=== PATIENT | female | born 1980 | race Caucasian/White ===

== ENCOUNTER → 2017-12-03 15:44 | Outpatient (CLI) | payer SELFPAY ==
[2017-12-03 17:57] LABS: Absolute Lymphocyte Count 1.45 X10^3/ul (0.83-4.51); Absolute Neutrophil Count 5.7 X10^3/uL (2.0-7.7); Basophil# 0.04 X10^3/uL; Basophil% 0.5 % (0-1); Eosinophil# 0.23 X10^3/uL; Eosinophils% 2.8 % (0-5); Hematocrit 35.9 % (37-47); Hemoglobin 10.8 g/dl (12.0-15.0); Lymphocyte # 1.45 X10^3/ul (4.0); Lymphocyte % 17.8 % (19-41); Mean Corp Hgb Conc 30.1 g/gl (32-36); Mean Corpuscular Hgb 23.3 pg (27.0-32.0); Mean Corpuscular Volume 77.4 fL (81-99); Monocyte# 0.68 X10^3/uL; Monocyte% 8.4 % (0-10); Neutrophil # 5.73 X10^3/uL (2.7-7.7); Neutrophil % 70.4 % (47-70); Platelet Count 325 K/mm3 (150-450); RBC Distribution Width CV 15.7 % (11.6-14.6); RBC Distribution Width SD 44.2 fl (35.1-43.9); Red Blood Count 4.64 M/mm3 (4.2-5.4); White Blood Count 8.1 K/mm3 (4.4-11.0)
[2017-12-03 18:05] LABS: POSITIVE COUNT NO; POSITIVE DIFFERENTIAL NO; POSITIVE MORPHOLOGY NO
[2017-12-03 19:01] LABS: Anion Gap 8 (5-15); BUN 12 mg/dL (7-18); BUN/Creat Ratio 15.4 RATIO (10-20); Calcium,Total 8.8 mg/dL (8.5-10.1); Chloride 106 mmol/L (98-107); Creatinine, Serum 0.78 mg/dL (0.55-1.02); EST Glomerular Filtration Rate 88 mL/min (>60); Est Glom Filt Rate - Afr Amer 106 mL/min (>60); Glucose 148 mg/dL (74-106); Magnesium 2.1 mg/dL (1.6-2.6); Potassium 3.8 mmol/L (3.5-5.1); Sodium Level 141 mmol/L (136-145); T4 Free Direct 0.97 ng/dL (0.76-1.46); Thyroid Stim Hormone (TSH) 1.15 uIU/mL (0.358-3.74)
== END ==
PROVIDERS: Family Provider Family Medicine; PCP Family Medicine; Visit Provider Family Medicine
DX: R06.00 Dyspnea, unspecified (principal); R00.2 Palpitations
CPT/HCPCS: 36415; 80048; 83735; 84439; 84443; 85025

== ENCOUNTER → 2017-12-08 19:19 | Outpatient (CLI) | payer OTHER, SELFPAY ==
[2017-12-14 14:36] LABS: HPV APTIMA, High Risk Negative (Negative)
== END ==
PROVIDERS: Visit Provider Nurse Practitioner Women's Health
DX: Z12.4 Encounter for screening for malignant neoplasm of cervix (principal)
CPT/HCPCS: 88175; G0145

== ENCOUNTER → 2017-12-16 08:05 | Outpatient (CLI) | payer OTHER, SELFPAY ==
--- NOTE | 2017-12-16 08:09 | US_ITS ---
STUDY: ULTRASOUND OF THE FEMALE PELVIS - COMPLETE REASON FOR EXAM: Female, 37 years old. DUB TECHNIQUE: Transabdominal and Transvaginal TECHNICAL QUALITY: Adequate. COMPARISON: None. FINDINGS: The uterus is anteverted and is in a midline position. The uterus measures 10.3 x 6 x 5.8 cm. Normal uterine cervix. The endometrium measures 5 mm in thickness, and is hyperechoic. There is no demonstrated endometrial mass. Uterine fibroid visualized measuring 15 x 11 x 14 mm. I.U.D. - The patient does not have an I.U.D. The right ovary is visualized. The right ovary measures 2.9 x 2.8 x 1.3 cm. There is no right ovarian cyst or ovarian mass. There is no visualized right adnexal mass or complex lesion. There is normal arterial and normal venous vascularity. The left ovary is visualized. The left ovary measures 2.5 x 3.9 x 1.8 cm. There is no left ovarian cyst or ovarian mass. There is no visualized left adnexal mass or complex lesion. There is normal arterial and normal venous vascularity. There is no fluid in the cul-de-sac. The pre void volume of the bladder was 282 ml. Polycystic ovary disease: No. US/Pelvic (Non ) IMPRESSION: Fibroid uterus. Electronically Signed: Kevin Hampton MD at 16:56 EDT , Service support ,
--- NOTE | 2017-12-16 08:09 | US_ITS ---
STUDY: ULTRASOUND OF THE FEMALE PELVIS - COMPLETE REASON FOR EXAM: Female, 37 years old. DUB TECHNIQUE: Transabdominal and Transvaginal TECHNICAL QUALITY: Adequate. COMPARISON: None. FINDINGS: The uterus is anteverted and is in a midline position. The uterus measures 10.3 x 6 x 5.8 cm. Normal uterine cervix. The endometrium measures 5 mm in thickness, and is hyperechoic. There is no demonstrated endometrial mass. Uterine fibroid visualized measuring 15 x 11 x 14 mm. I.U.D. - The patient does not have an I.U.D. The right ovary is visualized. The right ovary measures 2.9 x 2.8 x 1.3 cm. There is no right ovarian cyst or ovarian mass. There is no visualized right adnexal mass or complex lesion. There is normal arterial and normal venous vascularity. The left ovary is visualized. The left ovary measures 2.5 x 3.9 x 1.8 cm. There is no left ovarian cyst or ovarian mass. There is no visualized left adnexal mass or complex lesion. There is normal arterial and normal venous vascularity. There is no fluid in the cul-de-sac. The pre void volume of the bladder was 282 ml. Polycystic ovary disease: No. US/Transvaginal Non- IMPRESSION: Fibroid uterus. Electronically Signed: Kevin Hampton MD at 16:56 EDT , Service support ,
== END ==
PROVIDERS: Family Provider Family Medicine; PCP Family Medicine; Visit Provider Nurse Practitioner Women's Health
DX: N92.0 Excessive and frequent menstruation with regular cycle (principal)
CPT/HCPCS: 76830; 76856; 93976

== ENCOUNTER → 2019-04-05 | Outpatient (CLI) | payer BC, SELFPAY ==
[2017-12-08 13:57] VITALS: BMI 44.2
[2019-04-05 12:50] LABS: Absolute Lymphocyte Count 1.05 X10^3/uL (0.83-4.51); Absolute Neutrophil Count 4.8 X10^3/uL (2.0-7.7); Basophil# 0.07 X10^3/uL; Eosinophil# 0.23 X10^3/uL; Eosinophils% 3.3 % (0-5); Hematocrit 33.5 % (37-47); Hemoglobin 9.7 g/dL (12.0-15.0); Lymphocyte # 1.05 X10^3/ul (4.0); Lymphocyte % 15.2 % (19-41); Mean Corpuscular Hgb 21.8 pg (27.0-32.0); Mean Corpuscular Volume 75.5 fL (81-99); Mean Platelet Vol. 10.3 fl (6.2-12.0); Monocyte# 0.66 X10^3/uL; Monocyte% 9.6 % (0-10); NRBC Flagged by Analyzer 0 % (0-5); Neutrophil # 4.84 X10^3/uL (2.7-7.7); Neutrophil % 70.3 % (47-70); Platelet Count 315 K/mm3 (150-450); RBC Distribution Width CV 15.7 % (11.6-14.6); RBC Distribution Width SD 42.6 fl (35.1-43.9); Red Blood Count 4.44 M/mm3 (4.2-5.4); White Blood Count 6.9 K/mm3 (4.4-11.0)
[2019-04-05 12:57] LABS: Hemoglobin A1c 5.3 % (4.2-6.3)
[2019-04-05 13:24] LABS: Anion Gap 10 (5-15); BUN 9 mg/dL (7-18); BUN/Creat Ratio 12.5 RATIO (10-20); Calcium,Total 8.7 mg/dL (8.5-10.1); Chloride 104 mmol/L (98-107); Creatinine, Serum 0.72 mg/dL (0.55-1.02); EST Glomerular Filtration Rate 96 mL/min (>60); Est Glom Filt Rate - Afr Amer 116 mL/min (>60); Glucose 103 mg/dL (74-106); Iron 15 ug/dL (50-170); Potassium 3.9 mmol/L (3.5-5.1); Sodium Level 138 mmol/L (136-145); Thyroid Stim Hormone (TSH) 1.25 uIU/mL (0.358-3.74)
== END | disposition home or self-care (01) ==
LOC: BFHLAB 09:35
PROVIDERS: Family Provider Family Medicine; PCP Family Medicine; Visit Provider Family Medicine
DX: D64.9 Anemia, unspecified (principal); F32.9 Major depressive disorder, single episode, unspecified; R73.02 Impaired glucose tolerance (oral)
CPT/HCPCS: 36415; 80048; 83036; 83540; 84443; 85025

== ENCOUNTER → 2020-07-17 12:35 | Outpatient (CLI) | payer BC, SELFPAY ==
--- NOTE | 2020-07-17 13:05 | CT_ITS ---
STUDY: CT BRAIN WITHOUT CONTRAST REASON FOR EXAM: Female, 39 years old. SIGNS OF ENLARGING INTERCRANIAL MASS RADIATION DOSAGE (If Supplied By Facility): CTDIvol = ( 60.81 ) mGy, DLP = ( 2134.16 ) mGycm TECHNIQUE: Transaxial CT imaging of the brain was performed without administration of intravenous contrast material. Individualized dose optimization techniques were used for this CT. COMPARISON: No relevant priors. FINDINGS: Normal soft tissue structures. Normal calvarium. Normal size ventricles and extra-axial spaces for the patient''s age. Normal white matter tracts of the cerebral hemispheres. Normal basal ganglia and thalami. Normal brainstem. Normal cerebellum. There is no intracranial hemorrhage. There are no findings of an acute ischemic infarction. Normal visualized paranasal sinuses. CT/Brain/Head without Contrast IMPRESSION: Normal unenhanced CT scan of the brain. Electronically Signed: Fabio Calvillo MD at 13:37 EST , Service support ,
== END ==
PROVIDERS: PCP Family Medicine; Referring Provider Family Medicine; Visit Provider Family Medicine
DX: R51.0 Headache with orthostatic component, not elsewhere classified (principal); H53.2 Diplopia
CPT/HCPCS: 70450

== ENCOUNTER → 2020-10-23 14:54 | Outpatient (CLI) | payer BC, SELFPAY ==
[2017-12-08 13:57] VITALS: BMI 44.2
[2020-10-23 17:47] LABS: Absolute Lymphocyte Count 1.16 X10^3/uL (0.83-4.51); Absolute Neutrophil Count 4.2 X10^3/uL (2.0-7.7); Basophil# 0.07 X10^3/uL; Basophil% 1.1 % (0-1); Eosinophil# 0.37 X10^3/uL; Eosinophils% 5.7 % (0-5); Hematocrit 33.9 % (37-47); Hemoglobin 9.9 g/dL (12.0-15.0); Lymphocyte # 1.16 X10^3/ul (0.83-4.51); Lymphocyte % 17.8 % (19-41); Mean Corp Hgb Conc 29.2 g/dL (32-36); Mean Corpuscular Hgb 22.5 pg (27.0-32.0); Mean Platelet Vol. 10.5 fl (6.2-12.0); Monocyte# 0.75 X10^3/uL; Monocyte% 11.5 % (0-10); NRBC Flagged by Analyzer 0 % (0-5); Neutrophil # 4.15 X10^3/uL (2.7-7.7); Neutrophil % 63.4 % (47-70); Platelet Count 292 K/mm3 (150-450); RBC Distribution Width CV 15.2 % (11.6-14.6); RBC Distribution Width SD 42.4 fl (35.1-43.9); White Blood Count 6.5 K/mm3 (4.4-11.0)
[2020-10-23 18:10] LABS: ALB/GLOB Ratio 1.1 RATIO (0.9-2.4); AST(SGOT) 44 U/L (15-37); Alanine Aminotransfer ALT/SGPT 72 U/L (13-56); Albumin, Serum 3.6 g/dL (3.2-5.0); Alkaline Phosphatase 111 U/L (45-117); Anion Gap 9 (5-15); BUN 8 mg/dL (7-18); BUN/Creat Ratio 10.9 RATIO (10-20); Calcium,Total 8.7 mg/dL (8.5-10.1); Chloride 109 mmol/L (98-107); Creatinine, Serum 0.73 mg/dL (0.55-1.02); EST Glomerular Filtration Rate 93 mL/min (>60); Est Glom Filt Rate - Afr Amer 112 mL/min (>60); Ferritin 6 ng/mL (8-252); Globulin 3.2 g/dL (2.2-4.2); Glucose 90 mg/dL (74-106); Iron 20 ug/dL (50-170); Magnesium 2.1 mg/dL (1.6-2.6); Potassium 3.8 mmol/L (3.5-5.1); Protein, Total 6.8 g/dL (6.4-8.2); Sodium Level 140 mmol/L (136-145); Thyroid Stim Hormone (TSH) 1.65 uIU/mL (0.358-3.74)
== END ==
PROVIDERS: PCP Family Medicine; Referring Provider Family Medicine; Visit Provider Family Medicine
DX: I95.9 Hypotension, unspecified (principal); D64.9 Anemia, unspecified; G93.2 Benign intracranial hypertension; R00.2 Palpitations
CPT/HCPCS: 36415; 80053; 82728; 83540; 83735; 84443; 85025

== ENCOUNTER → 2021-03-07 12:05 | Outpatient (CLI) | payer BC, SELFPAY ==
--- NOTE | 2021-03-07 12:10 | US_ITS ---
STUDY: ULTRASOUND TRANSVAGINAL CLINICAL: Female, 40 years old. Abnormal uterine bleeding TECHNIQUE: Transabdominal and Transvaginal COMPARISON: None. FINDINGS: Normal uterine size measuring 9.7 x 5.9 x 5.7 cm in maximal craniocaudal dimension. There are no myometrial masses. Endometrial thickness measuring 13 mm. There are no endometrial masses, and there is no fluid in the endometrial cavity. Normal uterine cervix. Nabothian cyst. Normal right ovary, measuring 4 x 2.1 x 2.3 cm. There are multiple follicles with a dominant cyst. Normal left ovary, measuring 3.9 x 2.6 x 2.9 cm. 3.3 x 2.1 x 2.1 cm cyst. There is mild free fluid in the pelvis. Polycystic ovary disease: No. US/Pelvic (Non ) IMPRESSION: 13 mm endometrial thickness without other abnormal endometrial finding. 3.3 cm left ovarian cyst. Electronically Signed: Jesus Alberto Mendoza MD at 3:01 EDT Tel , Service support ,
--- NOTE | 2021-03-07 12:10 | US_ITS ---
STUDY: ULTRASOUND TRANSVAGINAL CLINICAL: Female, 40 years old. Abnormal uterine bleeding TECHNIQUE: Transabdominal and Transvaginal COMPARISON: None. FINDINGS: Normal uterine size measuring 9.7 x 5.9 x 5.7 cm in maximal craniocaudal dimension. There are no myometrial masses. Endometrial thickness measuring 13 mm. There are no endometrial masses, and there is no fluid in the endometrial cavity. Normal uterine cervix. Nabothian cyst. Normal right ovary, measuring 4 x 2.1 x 2.3 cm. There are multiple follicles with a dominant cyst. Normal left ovary, measuring 3.9 x 2.6 x 2.9 cm. 3.3 x 2.1 x 2.1 cm cyst. There is mild free fluid in the pelvis. Polycystic ovary disease: No. US/Transvaginal Non- IMPRESSION: 13 mm endometrial thickness without other abnormal endometrial finding. 3.3 cm left ovarian cyst. Electronically Signed: Jesus Alberto Mendoza MD at 3:01 EDT Tel , Service support ,
--- NOTE | 2021-03-07 12:10 | ECHOD_ITS ---
Reason For Study: SYNCOPE/NEAR SYNCOPE Procedure This was a 2D Doppler, Color Flow transthoracic echocardiogram. The study was technically difficult. Contrast injection was performed. Exam performed in department. Left Ventricle Normal LV size. Left ventricular systolic function is normal. The estimated ejection fraction is 60 %. Normal diastology for age. No regional wall motion abnormalities noted. Right Ventricle Normal RV size. Normal systolic function. Atria Normal left atrium. Normal right atrium. Mitral Valve Normal mitral valve. Tricuspid Valve Normal tricuspid valve. Mild (1+) tricuspid valve insufficiency. Pulmonary artery systolic pressure is 28 mmHg. Aortic Valve Normal aortic valve. Trisinus/trileaflet aortic valve. Pulmonic Valve The pulmonic valve is not well visualized. Great Vessels Normal aortic root. The pulmonary artery is normal size. Normal inferior vena cava. Pericardium/Pleural No pericardial effusion. Medication 22 gauge I.V. with prn adaptor inserted into left arm. Diluted definity 2.5ml given slow IV push to enhance endocardial definition. MMode/2D Measurements & Calculations LVIDd: 5.5 cm IVSd: 0.77 cm Ao root diam: 3.2 cm LVIDs: 3.8 cm LVPWd: 0.74 cm RVDd: 4.2 cm FS: 31.0 % LAV(MOD-bp): 50.2 ml LVAd ap4: 26.3 cm2 SV(MOD-sp4): 40.3 ml LAV(MOD-bp) Indexed: 22.0 ml/m2 LVLd ap4: 7.6 cm LAV(MOD-sp2): 42.8 ml EDV(MOD-sp4): 71.6 ml LAV(MOD-sp4): 50.5 ml EDV(sp4-el): 77.1 ml LVAs ap4: 16.0 cm2 LVLs ap4: 6.5 cm ESV(MOD-sp4): 31.3 ml ESV(sp4-el): 33.4 ml EF(MOD-sp4): 56.2 % EF(sp4-el): 56.6 % SV(sp4-el): 43.7 ml LA A4 area: 19.7 cm2 LA dimension(2D): 4.6 cm RA A4 area: 19.9 cm2 Doppler Measurements & Calculations MV E max sourav: 79.7 cm/sec Lat Peak E' Sourav: 14.6 cm/sec Med Peak E' Sourav: 10.2 cm/sec MV A max sourav: 44.9 cm/sec E/E' lat: 5.5 E/E' med: 7.8 MV E/A: 1.8 Ao V2 max: 141.1 cm/sec LV V1 max: 113.3 cm/sec PA V2 max: 102.9 cm/sec Ao max P.0 mmHg LV V1 max P.1 mmHg TR max sourav: 243.5 cm/sec TR max P.7 mmHg ECHO/Echo Complete W/ Contrast Interpretation Summary Normal LV size. Left ventricular systolic function is normal. The estimated ejection fraction is 60 %. Normal diastology for age. Contrast injection was performed. Ordering Physician: Hussein Moore Referring Physician: CHERI HERRERA Performed By: Karyn Salas, RDCS, RVT
== END ==
PROVIDERS: PCP Family Medicine; Referring Provider Internal Medicine Cardiovascular Disease; Visit Provider Nurse Practitioner Women's Health
DX: N92.0 Excessive and frequent menstruation with regular cycle (principal); I95.9 Hypotension, unspecified; R55 Syncope and collapse
CPT/HCPCS: 76830; 76856; 93306; Q9957; A4216; C8929; J3490

== ENCOUNTER → 2021-03-09 11:46 | Outpatient (CLI) | payer BC, SELFPAY ==
--- NOTE | 2021-03-09 11:46 | BI_ITS ---
MAMMOGRAPHY - BILATERAL SCREENING REASON FOR EXAM: Female, 40 years old. Routine annual screening examination. PERTINENT HISTORY: Grandmother with breast cancer. Aunt with breast cancer. TECHNIQUE: Digital bilateral breast casper (3D mammographic acquisition) in the CC and MLO projections. 2-D mediolateral oblique (MLO) and craniocaudad (CC) views of both breasts were obtained. CAD: Full Field Digital Mammography with Computer Added Detection was performed. COMPARISON: None. Baseline examination. FINDINGS: Breast Composition: There are scattered areas of fibroglandular density. There are no dominant masses or suspicious calcifications. Small bilateral benign-appearing axillary lymph nodes. No other significant abnormalities are identified. BI/SCRN MAMM (CAD)W/CASPER BILAT IMPRESSION: Negative screening mammogram. Yearly followup mammogram recommended. (A) ASSESSMENT CATEGORY: BIRADS Category 2: Benign. A letter regarding these results will be sent to the patient by the facility within 30 days. Approximately 10% of breast cancers are not detected by mammography. A normal mammogram should not delay biopsy of a clinically suspicious abnormality. [id number] Electronically Signed: Fabio Calvillo MD at 12:53 EDT , Service support ,
== END ==
PROVIDERS: PCP Family Medicine; Visit Provider Nurse Practitioner Women's Health
DX: Z12.31 Encounter for screening mammogram for malignant neoplasm of breast (principal)
CPT/HCPCS: 77063; 77067

== ENCOUNTER → 2021-04-11 16:12 | Outpatient (CLI) | payer BC, SELFPAY ==
--- NOTE | 2021-04-11 16:25 | MRI_ITS ---
STUDY: EXAMINATION - MRV BRAIN WITHOUT CONTRAST REASON FOR EXAM: Female, 40 years old. PSEUDOTUMOR CEREBRI TECHNIQUE: 3D [id number] (TOF) imaging was performed in a mayte MRI scanner. COMPARISON: None. FINDINGS: Examination is technically suboptimal due to lack of IV contrast. There are flow artifacts obscuring transitions of the transverse to sigmoid sinuses. Superior sagittal sinus, straight sinus and right transverse sinus are normal. Right sigmoid sinus is normal. Junction of right transverse and sigmoid is suboptimally evaluated. Left transverse sinus is small with poorly visualized junction with the sigmoid. Sigmoid is small and patent. Proximal jugulars are patent with right dominant. MRI/MRV Head Without Contrast IMPRESSION: 1. Technically suboptimal exam with segmental nonvisualization. 2. 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 3. Definitive evaluation is desired consider contrast enhanced exam to avoid artifacts. Electronically Signed: Tracey Joseph MD at 8:43 EST Tel , Service support ,
== END ==
PROVIDERS: PCP Family Medicine; Visit Provider Psychiatry & Neurology Neurology
DX: G93.2 Benign intracranial hypertension (principal)
CPT/HCPCS: 70544

== ENCOUNTER → 2021-04-30 | Outpatient (CLI) | payer BC, SELFPAY ==
--- NOTE | 2021-04-30 | EMB_PTH ---
PATIENT: RAFFY NIXON LOC: [facility] U#:[id number] AGE/SX: 40/F ROOM: RE04/30/[address]: Dr. Catherine Tripp MD : 1980 BED: DIS: 04/30/2021 SPEC #: [id number] RECD: 04/30/21 16:12 STATUS: NIGEL REYazmin #: [id number] RAI: 04/30/21 00:[address]: Catherine Tripp DEPT: SURGICAL PATHOLOGY RECD BY: Charles Lopez ENTERED: 05/01/21 10:22 SP TYPE: ENDOM BX/C CHUCHO DR: Dr. Sabas Rizvi MD Tissues: Endometrium, NOS Procedures: Surgery Specimen Level IV HEADER OPERATION: Endometrial biopsy PRE-OP DIAGNOSIS: Menorrhagia with regular cycle TISSUE SUBMITTED: Endometrium MICROSCOPIC DIAGNOSIS Endometrium, biopsy: Proliferative endometrium with minimal disorder. AM:kristyn 05/02/2021 MICROSCOPIC DESCRIPTION Slides are reviewed. GROSS DESCRIPTION Received is one container labeled with the patient's name and not further designated. The specimen consists of multiple irregular fragments of light hilario soft tissue that in aggregate measure 2.5 x 2.5 x <0.1 cm. The specimen is totally submitted in one cassette. / AM:kristyn 05/01/21 TC:5 CPT: 69609
== END | disposition home or self-care (01) ==
LOC: LABSPEC 16:21
PROVIDERS: PCP Family Medicine; Referring Provider Obstetrics & Gynecology; Visit Provider Obstetrics & Gynecology
DX: N92.0 Excessive and frequent menstruation with regular cycle (principal)
CPT/HCPCS: 88305

== ENCOUNTER 2021-05-22 10:13 | Day surgery (SDC) | payer BC, SELFPAY ==
[2021-05-22] VITALS (10 sets, daily range): BP systolic 106–134; BP diastolic 56–84; PULSE 67–755; RESP 16–18; TEMP 36.3–37; O2SAT 93–100; BMI 43.4
--- NOTE | 2021-05-22 07:30 | HP.PCM_ITS ---
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 Is patient in pain?: No Allergies bee venom protein (honey bee) Allergy (Severe, Verified 04/30/21 09:00) Anaphylaxis Medications cholecalciferol (vitamin D3) 25 mcg (1,000 unit) capsule 25 mcg PO DAILY 02/06/21 [History Confirmed 04/30/21] ferrous gluconate 324 mg (37.5 mg iron) tablet 324 mg PO DAILY 02/06/21 [History Confirmed 04/30/21] mecobalamin (vitamin B12) 1,000 mcg chewable tablet 1,000 mcg PO DAILY 02/06/21 [History Confirmed 04/30/21] acetaminophen 325 mg capsule 650 mg PO ONCE PRN cap 04/05/21 [History Confirmed 04/30/21] acetazolamide 500 mg capsule,extended release 500 mg PO TID #90 cap 04/05/21 [Rx Confirmed 04/30/21] cyclobenzaprine 10 mg tablet 10 mg PO BID PRN tab 04/05/21 [History Confirmed 04/30/21] loratadine 10 mg capsule 10 mg PO DAILY 04/05/21 [History Confirmed 04/30/21] meloxicam 15 mg tablet 15 mg PO DAILY tab 04/05/21 [History Confirmed 04/30/21] sertraline 100 mg tablet 100 mg PO DAILY tab 04/05/21 [History Confirmed 04/30/21] PFSH Medical History (Updated 04/30/21 @ 09:[address] Catherine Tripp MD) Anemia Anxiety and depression Arthritis COVID-19 virus detected (01/03/21) IBS (irritable bowel syndrome) IIH (idiopathic intracranial hypertension) Iron deficiency anemia Morbid obesity Psoriatic arthritis Seasonal allergies Situational depression Tobacco abuse Vision problems Surgical History delivery delivered H/O dilation and curettage History of cholecystectomy Family History Mother Diabetes Hypertension Father Diabetes Hypertension Kidney disease stage 4 Grandmother Diabetes MVP (mitral valve prolapse) Breast cancer Congestive heart disease Kidney disease Grandfather Kidney disease CVA (cerebral vascular accident) Diabetes Cancer lung Social History Smoking Status: Former smoker quit date: 05/19/18 pack-years: 20 Tobacco: How many years used: 20 Electronic Cigarette Use: not used second hand exposure: No alcohol intake: current details: social substance use type: does not use caffeine: Yes what type of physical activity do you participate in: walking frequency: 3-4 times per week seatbelt use: always do you feel safe at home: Yes 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 she tried progestin only pill and it exacerbated her IIH so she stopped it. She has had a normal US 10 cm uterus no abnormal findings. she is considering an ablation she has been iron for anemia. most recent hg was 11. she hasn't had an EMB yet. Pregancy History 5 Elective abortions Hx Para 4 Spontaneous abortions Hx # Term Pregnancies Ectopic pregnancies Hx # Pregnancies Multiple births # of living children Past Pregnancies Del. Date Name GA/Weeks Outcome Route Bth Weight Gen Labor Lgth Anesthesia Del Locatn Provider FOB Unknown 1998 Mattie live - full term [place] Unknown 2001 Miscarriage Unknown 2004 Marisela 40 live - full term [place] Unknown 2004 Daniel 40 live - full term [place] [facility] Unknown 2009 Lisa 40 live - full term [facility] ROS Const Constitutional: Reports fatigue; Denies weight gain or weight loss Cardio Card: Denies chest pain Resp Resp: Denies cough or dyspnea on exertion GI GI: Denies abdominal pain, bloating, change in stool character, constipation or vomiting : Reports as per HPI; Denies difficulty voiding, pelvic pain, urinary frequency, urinary incontinence, urinary urgency, vaginal discharge or vaginal pruritus Exam Const General: cooperative and no acute distress Nutritional Appearance: obese Orientation: oriented x3 HENMT Head: normal to inspection Neck Neck: normal visual inspection Thyroid: thyroid normal Lymphatic: no lymphadenopathy noted Resp Effort & Inspection: normal respiratory effort GI Palpation: soft, no masses and nontender Rectal Exam: deferred External Female Exam: normal external appearance and normal appearance of the urethra Urethra: normal appearance of the urethra and normal palpation Speculum Exam - Vagina: normal appearance of the vagina and normal vaginal discharge Speculum Exam - Cervix: normal appearance of the cervix Bimanual Exam- Vagina & Uterus: normal bimanual exam, uterine size normal, uterine shape normal and non-tender Bimanual Exam- Adnexa, other: normal adnexae, no masses, normal and non-tender Pelvic Support: normal Neuro General: patient alert and patient oriented x3 Psych Affect: normal affect Office Procedures Endometrial Biopsy Endometrial Biopsy Test: Yes Negative Consent Signed: Yes Time out checklist: patient, procedure, site marked/identified, positioning of patient, supplies available, allergies confirmed and team agrees on procedure Time out time: 09:30 tenaculum used: No dilator used: No Details: Cervix prepped with betadine and pipelle inserted into uterus without complication. Specimen obtained and sent to lab for analysis. All instruments removed from vagina without complications. Excellent hemostasis noted. Coding Level of Care Code Off vis,est,level 4 Diagnoses Menorrhagia with regular cycle N92.0 Iron deficiency anemia D50.9 Iron deficiency anemia type: unspecified iron deficiency CPT Codes Endometrial Biopsy (46256) Assessment and Plan Assessment and Plan (1) Menorrhagia with regular cycle: Status: Acute Comment: failed progestin- side effects with IIH. plan emb and d and c hysteroscopy ablation. (2) Iron deficiency anemia: Status: Chronic Qualifiers: Iron deficiency anemia type: unspecified iron deficiency Qualified Code(s): D50.9 - Iron deficiency anemia, unspecified Comment: hg [address] Rizvi, on iron supplement Plan - Dr. Catherine Tripp MD: After discussing the patient's diagnosis and treatment plan options, patient wishes to proceed with surgical management. I have discussed with the patient the risks, benefits, and alternatives of the procedure which include but are not limited to risks of anesthesia, bleeding, infection, possible damage to bowel, bladder, or surrounding vasculature which could lead to additional surgery to evaluate any complications. Patient agrees to procedure and wishes to proceed. ACOG/uptodate references given for additional information regarding procedure. Plan Details Other Orders: Orders: UPDATE- I have seen the patient and performed any clinically relevant updates to the history and physical exam. Catherine Tripp MD
[2021-05-22 10:55] LABS: Absolute Lymphocyte Count 1.21 X10^3/uL (0.83-4.51); Absolute Neutrophil Count 4.6 X10^3/uL (2.0-7.7); Basophil# 0.08 X10^3/uL; Basophil% 1.2 % (0-1); Eosinophil# 0.31 X10^3/uL; Eosinophils% 4.5 % (0-5); Hematocrit 34.2 % (37-47); Hemoglobin 10.3 g/dL (12.0-15.0); Lymphocyte # 1.21 X10^3/ul (0.83-4.51); Lymphocyte % 17.5 % (19-41); Mean Corp Hgb Conc 30.1 g/dL (32-36); Mean Corpuscular Hgb 22.6 pg (27.0-32.0); Mean Platelet Vol. 10.2 fl (6.2-12.0); Monocyte# 0.67 X10^3/uL; Monocyte% 9.7 % (0-10); NRBC Flagged by Analyzer 0 % (0-5); Neutrophil # 4.62 X10^3/uL (2.7-7.7); Neutrophil % 66.7 % (47-70); Platelet Count 223 K/mm3 (150-450); RBC Distribution Width CV 14.4 % (11.6-14.6); RBC Distribution Width SD 39.1 fl (35.1-43.9); Red Blood Count 4.56 M/mm3 (4.2-5.4); White Blood Count 6.9 K/mm3 (4.4-11.0)
[2021-05-22] MEDS: Lactated Ringers 1,000 ML 15 ML IV (10:56)
[2021-05-22 10:59] LABS: Internal QC Validated? YES +Cl - CLEAR BKGD; Pregnancy, Urine Negative Negative
--- NOTE | 2021-05-22 12:00 | EMB_PTH ---
PATIENT: RAFFY NIXON LOC: [facility] [place] U#:[id number] AGE/SX: 40/F ROOM: RE05/22/[address]: Dr. Catherine Tripp MD : 1980 BED: DIS: 05/22/2021 SPEC #: [id number] RECD: 05/22/21 13:45 STATUS: NIGEL REYazmin #: [id number] RAI: 05/22/21 12:[address]: Catherine Tripp DEPT: SURGICAL PATHOLOGY RECD BY: Tresa Lemus ENTERED: 05/22/21 13:52 SP TYPE: ENDOM BX/C CHUCHO DR: Dr. Sabas Rizvi MD Tissues: Endometrium, NOS Procedures: Surgery Specimen Level IV HEADER OPERATION: Hysteroscopy, D & C Robyn PRE-OP DIAGNOSIS: Menorrhagia, iron deficiency anemia TISSUE SUBMITTED: Endometrial curettings MICROSCOPIC DIAGNOSIS Endometrial curettings: Disordered proliferative endometrium. Fragments of ecto- and endocervical mucosa with chronic inflammation. See comment. SJ:kristyn 05/23/2021 COMMENT A few polypoid fragments of endometrial tissue are noted with extensive cystic changes may represent fragments of polyp. Please make reference to previous specimen ([id number]) endometrium, biopsy with diagnosis of ?proliferative endometrium with minimal disorder.? MICROSCOPIC DESCRIPTION Slides are reviewed. GROSS DESCRIPTION Received in fixative is one container labeled with the patient's name and designated endometrial curettings. The specimen consists of multiple irregular fragments of pink-hilario soft tissue that in aggregate measure 5 x 3 x 0.2 cm. The specimen is totally submitted in two cassettes. / AM:kristyn 05/22/21 TC:5 [facility]: [id number]
--- NOTE | 2021-05-22 13:17 | OP.PCM_ITS ---
Problems Associated Problem List Diagnoses (1) Menorrhagia with regular cycle: (2) Iron deficiency anemia: (3) IIH (idiopathic intracranial hypertension): (4) Tobacco abuse: (5) Morbid obesity: Report of Operation Date of Procedure: 05/22/21 Pre-Operative Diagnosis: see problem list Post-Operative Diagnosis: same Surgery/Procedure Performed:: d and c hysteroscopy robyn ablation Description of Surgical Findings:: nl uterine cavity embedded hardware engineer: None Type of Anesthesia: MAC Special Medications: none Specimen's removed: emc Drains: none Estimated Blood Loss (mL): 50 Fluids Replaced: crystalloid Description of Procedure: Patient was prepped and draped in a normal sterile fashion under MAC anesthesia. A weighted speculum was placed in the vagina and the anterior lip of the cervix was grasped with a single-tooth tenaculum. A paracervical block was placed with 1% lidocaine. Cervix was progressively dilated to allow passage of a 5 mm hysteroscope. The lining was fully visualized and noted to have thickened lining . Uterine sounded to 10 cm. Curettage was performed and a moderate amount of tissue removed , sent to pathology. The Robyn device was opened and the cavity length was found to be 6 cm. Device was inserted into the uterus and balloon inflated and device deployed. Integrity of the cavity was confirmed and a 2 minute treatment cycle was completed without complication. All instruments were removed from the vagina and excellent hemostasis was noted. Patient was awoken and taken to recovery in stable condition. Grafts/Implants Used: none Complications none Admit VTE Documentation VTE Present on Admission: No VTE Mechan Device Prophylaxis: SCD's Multi Select Codes Urinary/Genital Urinary/Genital CPT Codes: 34166 Robyn/Novasure
--- NOTE | 2021-05-22 13:18 | EX.PCM.DISCH ---
Discharge Instructions Procedure D&C Diet Discharge Diet: No restrictions Activity Discharge Activity: Return to Normal Activity, May Shower and May Take a Tub Bath (after 1 week) May resume sexual activity in: 1-2 weeks Weight Bearing Status: Weight bearing as tolerated Lifting Restrictions: none Dressing / Incision Call your doctor if you observe: Fever of 101 or Higher, Using more than 1 pad per hour, Shortness of breath and Uncontrolled pain Follow Up Care Please Follow Up With: Catherine Tripp MD When: Call [phone] to schedule appointment. Test Results: Test results from this visit will be discussed in further detail at your follow-up appointment, if applicable. Discharge Plan Admission Attending Provider: Catherine Tripp Primary Care Provider: Sabas Rizvi Discharge Orders/Prescriptions Prescriptions: No Action ferrous gluconate 324 mg (37.5 mg iron) tablet 324 mg PO DAILY RF: 0 mecobalamin (vitamin B12) 1,000 mcg tablet,chewable 1,000 mcg PO DAILY RF: 0 cholecalciferol (vitamin D3) 25 mcg (1,000 unit) capsule 25 mcg PO DAILY RF: 0 sertraline 100 mg tablet 100 mg PO DAILY RF: 0 loratadine 10 mg capsule 10 mg PO DAILY RF: 0 meloxicam 15 mg tablet 15 mg PO DAILY RF: 0 cyclobenzaprine 10 mg tablet 10 mg PO BID PRN (Reason: muscle spasm) RF: 0 acetaminophen [Tylenol] 325 mg capsule 650 mg PO ONCE PRN (Reason: Pain) RF: 0 acetazolamide 500 mg capsule, extended release 500 mg PO TID Qty: 90 RF: 2
[2021-05-22] MEDS: HYDROcodone Bitartrate/Apap 5/325 Tablet PO (15:33)
== END 2021-05-22 23:59 | disposition home or self-care (01) ==
LOC: SDC 10:16 → AC 10:18
PROVIDERS: Anesthesiology; PCP Family Medicine; Visit Provider Obstetrics & Gynecology
PROC: 0U5B8ZZ Destruction of Endometrium, Via Natural or Artificial Opening Endoscopic (ICD-10-PCS; CPT 58558; principal; 2021-05-22 11:45)
DX: N92.0 Excessive and frequent menstruation with regular cycle (principal); L40.50 Arthropathic psoriasis, unspecified; E66.01 Morbid (severe) obesity due to excess calories; Z68.41 Body mass index [BMI] 40.0-44.9, adult; D50.9 Iron deficiency anemia, unspecified; F41.9 Anxiety disorder, unspecified; F32.A Depression, unspecified; K58.9 Irritable bowel syndrome, unspecified; Z86.16 Personal history of COVID-19; M19.90 Unspecified osteoarthritis, unspecified site; Z79.899 Other long term (current) drug therapy; Z87.891 Personal history of nicotine dependence; G93.2 Benign intracranial hypertension
CPT/HCPCS: 58563; 00952; 81025; 85025; 86850; 86900; 86901; 88305; J7120; J2405

== ENCOUNTER → 2023-09-11 | Outpatient (CLI) | payer MEDICAID, SELFPAY ==
--- NOTE | 2023-09-11 09:19 | US_ITS ---
EXAM: US CHEST CLINICAL INDICATION: soft tissue of right mid thoracic back TECHNIQUE: Real-time ultrasound of the chest with image documentation. COMPARISON: No relevant prior studies available. FINDINGS: SOFT TISSUES: Ultrasound images of the posterior soft tissues of the back demonstrates encapsulated 4.3 x 4.5 x 1.2 cm solid mass possibly representing a lipoma. No fluid collection identified. No radiopaque foreign body. US/Other Unlisted US Procedure IMPRESSION: Question lipoma. Electronically Signed: Kirk Selby MD at 9:20 EDT ,
--- NOTE | 2023-09-11 09:58 | RAD_ITS ---
INDICATION: R SIDED BACK PAIN EXAMINATION/TECHNIQUE: X-RAY - XR Spine Lumbar Min 4 Views COMPARISON: April 16, 2004 abdominal radiograph. 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 Levels numbered accordingly. Severe bilateral facet arthropathy L4-5 and L5-S1. Moderate L3-4 facet arthropathy. Degenerative grade 1 anterolisthesis L4 on L5. No fracture or acute compression deformity. Minimal diffuse endplate osteophyte formation. DISCS: Congenitally diminutive L5-S1 disc with levels numbered as above. INCLUDED ABDOMEN: Included bowel gas pattern is non-obstructive. Bilateral tubal ligation surgical clips. 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 Levels numbered accordingly. Multilevel lower lumbar facet arthropathy minimal degenerative listhesis at L4-5. Electronically Signed: Stephon Gallardo MD at 21:29 EDT ,
== END | disposition home or self-care (01) ==
PROVIDERS: PCP Nurse Practitioner Family; Referring Provider Nurse Practitioner Family; Visit Provider Nurse Practitioner Family
DX: M54.50 Low back pain, unspecified (principal); M54.31 Sciatica, right side; M79.89 Other specified soft tissue disorders
CPT/HCPCS: 72110; 76999

== ENCOUNTER → 2023-11-03 | Outpatient (CLI) | payer OTHER, SELFPAY ==
--- NOTE | 2023-11-03 13:13 | BI_ITS ---
MAMMOGRAPHY - BILATERAL SCREENING REASON FOR EXAM: Female, 42 years old. Routine annual screening examination. PERTINENT HISTORY: Grandmother with breast cancer. Aunt with breast cancer. TECHNIQUE: Digital bilateral breast casper (3D mammographic acquisition) in the CC and MLO projections. 2-D mediolateral oblique (MLO) and craniocaudad (CC) views of both breasts were obtained. CAD: Full Field Digital Mammography with Computer Added Detection was performed. COMPARISON: Comparison is made with prior study dated March 09, 2021. FINDINGS: Breast Composition: There are scattered areas of fibroglandular density. There are no dominant masses or suspicious calcifications. Stable fat-containing bilateral axillary lymph nodes. No other significant abnormalities are identified. There has been no significant change since the prior study. BI/SCRN MAMM (CAD)W/CASPER BILAT IMPRESSION: Stable bilateral screening mammogram. Yearly follow-up mammogram recommended. (A) ASSESSMENT CATEGORY: BIRADS Category 2: Benign. A letter regarding these results will be sent to the patient by the facility within 30 days. Approximately 10% of breast cancers are not detected by mammography. A normal mammogram should not delay biopsy of a clinically suspicious abnormality. [id number] Electronically Signed: Fabio Calvillo MD at 14:33 EDT ,
== END | disposition home or self-care (01) ==
LOC: OPBI 13:12
PROVIDERS: PCP Nurse Practitioner Family; Referring Provider Nurse Practitioner Family; Visit Provider Nurse Practitioner Family
DX: Z12.31 Encounter for screening mammogram for malignant neoplasm of breast (principal); Z80.3 Family history of malignant neoplasm of breast
CPT/HCPCS: 77063; 77067

== ENCOUNTER 2023-11-24 13:30 | Outpatient (RCR) | payer OTHER, SELFPAY ==
--- NOTE | 2023-09-22 20:03 | HP.PTEVAL ---
Patient's Visit Information Visit Information Visit Information: RAFFY NIXON is a 42 year old F referred to Physical Therapy by NELIDA Hogue with a diagnosis of RADICULOPATHY LUMBAR ,SCIATICA RIGHT SIDE. Date of Evaluation: 09/22/23 Physical Therapist: Atul Almazan, PT, Cert MDT, OCS Visit Plan Frequency: 2x /Week Duration: 4 Weeks Plan: PT INTERVENTIONS SUJIT EXERCISES ,DLS ,POSTURAL EX'S ,ACTIVITY MODIFICATION AND MODALITIES FOR PAIN Subjective Subjective: This 42 y/o female presents to physical therapy with lumbar radiculopathy. Patient has had right lumbar radiculopathy ~ 2 years and worse past 2 months without etiology or mechanism of pain. 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 Moderate L3-4 facet arthropathy. Degenerative grade 1 anterolisthesis L4 on L5. acute compression deformity. Minimal diffuse endplate osteophyte formation. Location of pain right lumbar buttuck to lateral leg to to anterior tibia. Aggravating factors standing ,sitting extended periods ,AM ,lifting . Alleviating prone position with leg bent ,unable to lay on side. Patient has generalized numbness unrelated. Coughing/sneezing-. Bowel/bladder -. Pain affects sleeping. 6 months ago fell off horse. No prior TX. Patient condition affect QOL and function along with job demands. SOCIAL: VOCATION: Nurse Pain Right Back: Pain Intensity (Out of 10): 5 Pain Intensity Range: 10 Right Lower Extremity: Pain Intensity (Out of 10): 5 Pain Intensity Range: 10 Objective Objective: POSTURE: mild forward posture SYMMETRIES: Align NEURO: denies paresthesia/tingling , reflexes L3-4,L4-5,L5-S1 1/3 GAIT: reciprocal pattern PALAPTION: tender SI/LS FLEXABILITY: hamstrings min tight LUMBAR ROM : flexion min loss ,,extension mod loss ,side glides min loss MMT: quads/hams 4/5 ,hip flexion 4/5 ,except right hip 4-/5 ,ankle 4/5 Special Tests L/S Slump test left side: Negative L/S Slump test right side: Negative L/S Right Straight Leg Raise: Negative Lumbar Standing: Flexion - Mechanical Response: No effect Lumbar Standing: Flexion - Symptoms During Testing: Increases Lumbar Standing: Flexion - Symptoms After Testing: No worse Lumbar Standing: Extension - Mechanical Response: No effect Lumbar Standing: Extension - Symptoms During Testing: Increases Lumbar Standing: Extension - Symptoms After Testing: No worse Lumbar Standing: Right Side Glides - Mechanical Response: No effect Lumbar Standing: Right Side [place] - Symptoms During Testing: No effect Lumbar Standing: Right Side [place] - Symptoms After Testing: No effect Lumbar Standing: Left Side [place]hn - Mechanical Response: No effect Lumbar Standing: Left Side [place] - Symptoms During Testing: No effect Lumbar Standing: Left Side [place] - Symptoms After Testing: No effect Lumbar Lying: Flexion - Mechanical Response: No effect Lumbar Lying: Flexion - Symptoms During Testing: No effect Lumbar Lying: Flexion - Symptoms After Testing: No effect Lumbar Lying: Extension - Mechanical Response: Increases motion Lumbar Lying: Extension - Symptoms During Testing: Decreases Lumbar Lying: Extension - Symptoms After Testing: Better Balance/Special Test Scores Oswestry Low Back Score: 23 Goals Goal 1:: Patient to be I with HEP Goal Time Frame: 4-6 Weeks Goal 2:: Patient to demonstrate 50% improvement with less pain and improved function Goal Time Frame: 4-6 Weeks Goal 3:: Patient to improve lumbar ROM for function for job demands Goal Time Frame: 4-6 Weeks Goal 4:: Patient to improve back oswestry score by 5 points to improve QOL and function. Goal Time Frame: 4-6 Weeks Goal 5:: Patient to improve work demands and housework tasks with no limitations. Goal Time Frame: 4-6 Weeks Rehabilitation Potential Physical Therapy Diagnosis: This patient has possible derangement with below knee with pain increases with positioning and motion testing ,worse with sitting standing and lifting better with extension thus will benefit from skilled PT Rehabilitation Potential: Good Anticipated Interventions Patient/Client Instruction: Educate patient on: Condition and Plan of Care For the Purpose of:: To decrease pain, To increase ROM, To improve muscle performance and motor function, To increase tolerance to activity/condition/position, To improve performance and independence with ADL's, To improve ability of physical actions for home/community/work/leisure, To improve health of tissue, To decrease soft tissue restriction, To increase flexibility/ROM, To reduce risk of recurrence, To prevent re-injury and To improve tolerance to ADL's Therapeutic Exercise to Include: Strength training, Body mechanics, Postural training, Flexibilty training, Dynamic Lumbar Stabilization and Sujit Exercises For the Purpose of:: To decrease pain, To increase ROM, To improve muscle performance and motor function, To improve ability to perform ADL's, To increase tolerance to activity/condition/position, To improve ability of physical actions for home/community/work/leisure, To improve gait and locomotor functions, To decrease soft tissue restriction, To increase flexibility/ROM, To assume or resume ADL's, To reduce risk of recurrence and To improve tolerance to ADL's TENS: Yes IF ES: Yes Cryotherapy (ice pack, ice massage): Yes Thermo therapy (hot pack): Yes For the Purpose of:: To decrease pain, To increase ROM, To improve nutrient delivery to tissue, To increase oxygenation perfusion, To improve health of tissue and To decrease soft tissue restriction Text: Thank you for the opportunity to evaluate your patient. For Medicare and Medicare HMO plans, please review the plan of care and approve it. It will need to be FAXED BACK to us at [phone] for Medicare purposes. For Medicare only, by signing this I certify the plan of care. Please let me know if there are questions or concerns regarding this plan of care. Physician Signature: Date:
--- NOTE | 2023-11-07 15:58 | HP.PTREVAL_ITS ---
Re-Evaluation Intro: Agatha Steward, PATRICIA-C, It has been my pleasure to treat RAFFY NIXON over the last 12 visits for RADICULOPATHY LUMBAR ,SCIATICA RIGHT SIDE. Please see the progress note below for an update on the physical therapy plan of care! Subjective Subjective: MRI is not approved . Seen DR segundo to continue. Patient naidu pain right lumbar and worse in foot Aggravating factors bending lifting,sitting better with ex's Objective Objective/Function: POSTURE: WFL NEURO: denies paresthesia/tingling , reflexes L3-4,L4-5,L5-S1 2/3 GAIT: reciprocal pattern PALAPTION: UNREMRKABLE FLEXABILITY: hamstrings min tight LUMBAR ROM : flexion min loss ,,extension mod loss ,side glides min loss MMT: quads/hams 5/5 ,hip flexion 4/5 ,except right hip 4/5 ,ankle 5/5 Special Tests L/S Slump test left side: Negative L/S Slump test right side: Negative L/S Right Straight Leg Raise: Negative Lumbar Standing: Flexion - Mechanical Response: No effect Lumbar Standing: Flexion - Symptoms During Testing: Increases Lumbar Standing: Flexion - Symptoms After Testing: No worse Lumbar Standing: Extension - Mechanical Response: No effect Lumbar Standing: Extension - Symptoms During Testing: Increases Lumbar Standing: Extension - Symptoms After Testing: No worse Lumbar Standing: Right Side Glides - Mechanical Response: No effect Lumbar Standing: Right Side [place] - Symptoms During Testing: No effect Lumbar Standing: Right Side [place] - Symptoms After Testing: No effect Lumbar Standing: Left Side [place] - Mechanical Response: No effect Lumbar Standing: Left Side [place] - Symptoms During Testing: No effect Lumbar Standing: Left Side [place] - Symptoms After Testing: No effect Lumbar Lying: Flexion - Mechanical Response: No effect Lumbar Lying: Flexion - Symptoms During Testing: No effect Lumbar Lying: Flexion - Symptoms After Testing: No effect Lumbar Lying: Extension - Mechanical Response: Increases motion Lumbar Lying: Extension - Symptoms During Testing: Decreases Lumbar Lying: Extension - Symptoms After Testing: Better Plan Plan Plan: WILL CONT WITH POC BUT COULD BENEFIT FROM MRI BENDING LIFTING PRODUCES SYMPTOMS PT INTERVENTIONS SUJIT EXERCISES ,DLS ,POSTURAL EX'S ,ACTIVITY MODIFICATION AND MODALITIES FOR PAIN Balance/Gait/Functional tests Balance/Special Test Scores Oswestry Low Back Score: 18 Goals Goals Goal 1:: Patient to be I with HEP Goal Time Frame: 4-6 Weeks Goal Progress: Progressing Goal 2:: Patient to demonstrate 50% improvement with less pain and improved function Goal Time Frame: 4-6 Weeks Goal Progress: Progressing Goal 3:: Patient to improve lumbar ROM for function for job demands Goal Time Frame: 4-6 Weeks Goal Progress: Progressing Goal 4:: Patient to improve back oswestry score by 5 points to improve QOL and function. Goal Time Frame: 4-6 Weeks Goal Progress: Progressing Goal 5:: Patient to improve work demands and housework tasks with no limitations. Goal Time Frame: 4-6 Weeks Goal Progress: Progressing Anticipated Interventions Anticipated Interventions Patient/Client Instruction: Educate patient on: Condition and Plan of Care For the Purpose of:: To decrease pain, To increase ROM, To improve muscle performance and motor function, To increase tolerance to activity/condition/position, To improve performance and independence with ADL's, To improve ability of physical actions for home/community/work/leisure, To improve health of tissue, To decrease soft tissue restriction, To increase flexibility/ROM, To reduce risk of recurrence, To prevent re-injury and To impro ve tolerance to ADL's Therapeutic Exercise to Include: Strength training, Body mechanics, Postural training, Flexibilty training, Dynamic Lumbar Stabilization and Sujit Exer cises For the Purpose of:: To decrease pain, To increase ROM, To improve muscle performance and motor function, To improve ability to perform ADL's, To increase tolerance to activity/condition/position, To improve ability of physical actions for home/community/work/leisure, To improve gait and locomotor functions, To decrease soft tissue restriction, To increase flexibility/ROM, To assume or resume ADL's, To reduce risk of recurrence and To improve tolerance to ADL's TENS: Yes IF ES: Yes Cryotherapy (ice pack, ice massage): Yes Thermo therapy (hot pack): Yes For the Purpose of:: To decrease pain, To increase ROM, To improve nutrient delivery to tissue, To increase oxygenation perfusion, To improve health of tissue and To decrease soft tissue restriction Re-Evaluation Ending Re-evaluation ending: Please do not hesitate to contact me at [phone] by phone or if you have questions or concerns regarding this new plan of care! Sincerely, Atul Almazan, PT, Cert MDT, OCS
--- NOTE | 2023-11-24 14:00 | HP.PTDCSUM_ITS ---
Discharge Summary D/C summary: It has been my pleasure to treat RAFFY NIXON referred by GEORGE Hogue C, with the diagnosis of RADICULOPATHY LUMBAR ,SCIATICA RIGHT SIDE for a total of 15 visit(s). Discharge Date: Please see the following information for a summary of their discharge status. Subjective Subjective: Doing good for about 1 week ,then doing normal activity housework tasks. Pain Right Back: Pain Intensity (Out of 10): 3 Right Lower Extremity: Pain Intensity (Out of 10): 3 Right Foot: Pain Intensity (Out of 10): 3 Overall Improvement % Improvement: 40 Objective Objective/Function: POSTURE: WFL NEURO: denies paresthesia/tingling , reflexes L3-4,L4-5,L5-S1 2/3 GAIT: reciprocal pattern PALAPTION: UNREMRKABLE FLEXABILITY: hamstrings min tight LUMBAR ROM : flexion WFL loss ,,extension WFL ,side glides min loss MMT: quads/hams 5/5 ,hip flexion 4/5 ,except right hip 4/5 ,ankle 5/5 Goals Goal 1:: Patient to be I with HEP Goal Progress: Progressing Goal 2:: Patient to demonstrate 50% improvement with less pain and improved function Goal Progress: Progressing Goal 3:: Patient to improve lumbar ROM for function for job demands Goal Progress: Progressing Goal 4:: Patient to improve back oswestry score by 5 points to improve QOL and function. Goal Progress: Progressing Goal 5:: Patient to improve work demands and housework tasks with no limitations. Goal Progress: Progressing Plan Plan: PLAN FOR MRI D/C Information d/c sentence: If there are questions or concerns regarding this patient's physical therapy, please feel free to call me at [phone]. Thank you for the referral of this patient. Sincerely, Atul Almazan, PT, Cert MDT, OCS Balance/Gait/Functional tests Balance/Special Test Scores Oswestry Low Back Score: 8 Improvement % Improvement: 40
== END 2023-11-24 19:00 | disposition home or self-care (01) ==
LOC: PT 13:30
PROVIDERS: PCP Nurse Practitioner Family; Referring Provider Nurse Practitioner Family; Visit Provider Nurse Practitioner Family
DX: M54.16 Radiculopathy, lumbar region (principal); M54.31 Sciatica, right side
CPT/HCPCS: 97014; 97110; 97162; 97530; G0283

== ENCOUNTER → 2023-12-01 | Outpatient (CLI) | payer OTHER, SELFPAY ==
--- NOTE | 2023-12-01 12:30 | MRI_ITS ---
STUDY: MRI LUMBAR SPINE WITHOUT CONTRAST REASON FOR EXAM: Female, 43 years old. DISC BULGE/HERNIATION; PAIN TECHNIQUE: Standardized fat and water weighted pulse sequences were obtained in the sagittal and axial planes. Noncontrast images obtained. Contrast: No contrast administered COMPARISON: Prior comparison studies are not available for review at this time. FINDINGS: Vertebral bodies and alignment. 1. Vertebral body height and alignment are maintained. No evidence of marrow edema or occult fracture. 2. Paraspinous soft tissue planes have normal appearance. Normal appearance of the muscular fascial planes of the erector spinae. 3. Normal appearance of the sacrum and sacroiliac joints. Intervertebral disks levels. T12-L1: Normal endplates. Normal disc height, hydration and morphology. Normal bilateral facet joints. Normal central canal and bilateral lateral recesses. Normal bilateral intervertebral neural foramina. Endplate: No focal endplate marrow changes or endplate deformity. L1-2: Normal endplates. Normal disc height, hydration and morphology. Normal bilateral facet joints. Normal central canal and bilateral lateral recesses. Normal bilateral intervertebral neural foramina. Endplate: No focal endplate marrow changes or endplate deformity. L2-3: Normal endplates. Normal disc height, hydration and morphology. Normal bilateral facet joints. Normal central canal and bilateral lateral recesses. Normal bilateral intervertebral neural foramina. Endplate: No focal endplate marrow changes or endplate deformity. L3-4: No disc herniation canal stenosis, facet and ligament flavum hypertrophic changes are present with mild crowding of nerve roots lateral recesses greater on LEFT than RIGHT. No nerve root impingement. Endplate: No focal endplate marrow changes or endplate deformity. L4-5: Disc desiccation, broad-based disc bulge without disc herniation. Facet and ligament flavum hypertrophic changes contribute to crowding of nerve roots lateral recesses without wing nerve root impingement. Neural foramina are widely patent. Endplate: No focal endplate marrow changes or endplate deformity. L5-S1: Rudimentary disc is noted. No disc herniation canal or foraminal stenosis. Endplate: No focal endplate marrow changes or endplate deformity. Spinal cord: Normal appearance of the spinal cord and conus. Conus is located at L1. Cauda equina has normal appearance. No evidence of cord compression or edema. No intramedullary signal abnormality noted. Paraspinous soft tissues: Normal visualized paraspinous soft tissue structures. MRI/Spine Lumbar (Routine) IMPRESSION: 1. No evidence of disc herniation canal stenosis cord or nerve root impingement. 2. Multilevel facet and ligament flavum hypertrophic changes, mild crowding of nerve roots lateral recesses as detailed without nerve root impingement. 3. Spinal cord and conus have normal appearance. Electronically Signed: Jarrell Orosco MD at 1:02 EDT ,
== END | disposition home or self-care (01) ==
PROVIDERS: PCP Nurse Practitioner Family; Referring Provider Nurse Practitioner Family; Visit Provider Nurse Practitioner Family
DX: M54.31 Sciatica, right side (principal)
CPT/HCPCS: 72148

== ENCOUNTER → 2024-04-01 | Outpatient (CLI) | payer OTHER, SELFPAY ==
[2024-04-01 12:19] LABS: Absolute Lymphocyte Count 1.16 X10^3/uL (0.83-4.51); Absolute Neutrophil Count 4.9 X10^3/uL (2.0-7.7); Basophil# 0.08 X10^3/uL; Basophil% 1.1 % (0-1); Eosinophil# 0.31 X10^3/uL; Eosinophils% 4.3 % (0-5); Hematocrit 40.9 % (37-47); Lymphocyte # 1.16 X10^3/ul (0.83-4.51); Lymphocyte % 16.2 % (19-41); Mean Corp Hgb Conc 31.8 g/dL (32-36); Mean Corpuscular Hgb 28.2 pg (27.0-32.0); Mean Corpuscular Volume 88.7 fL (81-99); Mean Platelet Vol. 10.3 fl (6.2-12.0); Monocyte# 0.61 X10^3/uL; Monocyte% 8.5 % (0-10); NRBC Flagged by Analyzer 0 % (0-5); Neutrophil # 4.94 X10^3/uL (2.7-7.7); Neutrophil % 69.3 % (47-70); Platelet Count 232 K/mm3 (150-450); RBC Distribution Width CV 13.3 % (11.6-14.6); RBC Distribution Width SD 43.1 fl (35.1-43.9); Red Blood Count 4.61 M/mm3 (4.2-5.4); White Blood Count 7.1 K/mm3 (4.4-11.0)
[2024-04-01 13:09] LABS: ALB/GLOB Ratio 1.2 RATIO (0.9-2.4); AST(SGOT) 8 U/L (15-37); Alanine Aminotransfer ALT/SGPT 16 U/L (13-56); Albumin, Serum 3.5 g/dL (3.2-5.0); Alkaline Phosphatase 89 U/L (45-117); Anion Gap 7 (5-15); BUN 15 mg/dL (7-18); BUN/Creat Ratio 23.1 RATIO (10-20); Calcium,Total 8.1 mg/dL (8.5-10.1); Chloride 112 mmol/L (98-107); Cholesterol 215 mg/dL (200); Creatinine, Serum 0.65 mg/dL (0.55-1.02); EST Glomerular Filtration Rate 105 mL/min (>60); Est Glom Filt Rate - Afr Amer 127 mL/min (>60); Ferritin 37 ng/mL (8-252); Glucose 92 mg/dL (74-106); High Density Lipoprotein 75 mg/dL; Iron 50 ug/dL (50-170); Potassium 3.7 mmol/L (3.5-5.1); Protein, Total 6.5 g/dL (6.4-8.2); Sodium Level 140 mmol/L (136-145); Triglycerides 95 mg/dL; Very Low Density Lipoprotein 19 mg/dL (5-40)
[2024-04-01 13:18] LABS: Vitamin D,25 Hydroxy 6.5 ng/mL
== END | disposition home or self-care (01) ==
LOC: BFHLAB 10:40
PROVIDERS: PCP Nurse Practitioner Family; Referring Provider Nurse Practitioner Family; Visit Provider Nurse Practitioner Family
DX: Z00.01 Encounter for general adult medical examination with abnormal findings (principal); E55.9 Vitamin D deficiency, unspecified; D64.9 Anemia, unspecified
CPT/HCPCS: 36415; 80053; 80061; 82306; 82728; 83540; 85025

== ENCOUNTER → 2024-09-23 | Outpatient (CLI) | payer OTHER, SELFPAY | END | disposition home or self-care (01) | LOC: SL 13:13 | PROVIDERS: PCP Nurse Practitioner Family; Referring Provider Psychiatry & Neurology Neurology; Visit Provider Psychiatry & Neurology Neurology | DX: G47.10 Hypersomnia, unspecified (principal) | CPT/HCPCS: 95806 ==

== ENCOUNTER → 2024-11-29 | Outpatient (CLI) | payer OTHER, SELFPAY ==
[2024-11-29 11:51] LABS: Hematocrit 39.6 % (37-47); Hemoglobin 12.7 g/dL (12.0-15.0); Mean Corp Hgb Conc 32.1 g/dL (32-36); Mean Corpuscular Volume 87.0 fL (81-99); Mean Platelet Vol. 10.4 fl (6.2-12.0); Platelet Count 241 K/mm3 (150-450); RBC Distribution Width CV 13.4 % (11.6-14.6); RBC Distribution Width SD 42.6 fl (35.1-43.9); Red Blood Count 4.55 M/mm3 (4.2-5.4); White Blood Count 6.0 K/mm3 (4.4-11.0)
[2024-11-29 13:24] LABS: AST(SGOT) 14 U/L (<=31); Alanine Aminotransfer ALT/SGPT 14 U/L (<=34); Albumin, Serum 4.2 g/dL (3.5-5.0); Alkaline Phosphatase 87 U/L (35-104); Anion Gap 12 (5-15); BUN 15 mg/dL (4-19); BUN/Creat Ratio 17.0 RATIO (10-20); Calcium,Total 9.0 mg/dL (7.6-11.0); Carbon Dioxide 21.7 mmol/L (21.0-32.0); Chloride 106 mmol/L (98-108); Globulin 2.3 g/dL (2.2-4.2); Glucose 104 mg/dL (70-99); Potassium 3.8 mmol/L (3.3-5.1); Vitamin B12 585 pg/mL (180-914)
[2024-12-02 12:08] LABS: Vitamin D 1,25-Dihydroxy 34.1 pg/mL (24.8-81.5)
[2024-12-02 18:08] LABS: Folate, Hemolysate Test 316.0 ng/mL (Not Estab.); Folate, RBC (Hct) Test 39.6 % (34.0-46.6); Folates, RBC Test 798 ng/mL (>498); Vitamin B1, Thiamine 84.1 nmol/L (66.5-200.0)
== END | disposition home or self-care (01) ==
LOC: MTLAB 09:05
PROVIDERS: PCP Nurse Practitioner Family; Referring Provider Psychiatry & Neurology Neurology; Visit Provider Psychiatry & Neurology Neurology
DX: R41.3 Other amnesia (principal); E55.9 Vitamin D deficiency, unspecified
CPT/HCPCS: 36415; 80053; 82607; 82652; 82747; 84425; 84443; 85014; 85027